=== PATIENT | female | born 1965 | race Two or more races ===

== ENCOUNTER 2019-09-15 11:33 | Emergency (ER) | payer SELFPAY ==
[~2019-09-15] VITALS: Ht 160 cm; Wt 63.5 kg
[2019-09-15 11:40] VITALS: BP 111/60
[2019-09-15 12:34] LABS: Urine Bacteria FEW /hpf (None Seen); Urine Blood Negative /uL (Negative); Urine Mucus FEW (None Seen); Urine Specific Gravity 1.026 (1.001-1.035); Urine WBC 4 /hpf (0 - 5)
[2019-09-15] MEDS ORDERED: KETOROLAC TROMETH 60MG/2ML VIAL IM ONE (13:00)
== END 2019-09-15 13:30 | disposition home or self-care (01) ==
LOC: ER 11:33
DX: G44.209 Tension-type headache, unspecified, not intractable (principal)
CPT/HCPCS: 70450; 81001; 96372; 99284; J1885

== ENCOUNTER 2023-09-14 18:31 | Emergency (ER) | payer BC ==
[~2023-09-14] VITALS: Ht 162.6 cm; Wt 72.7 kg
[2023-09-14 19:47] LABS: Hemoglobin 11.8 g/dL (12.2-16.2); Mean Corpuscular Hemoglobin 21.7 pg (28.0-32.0)
[2023-09-14 19:48] LABS: Chloride 104 mmol/L (98-107); Potassium 4.3 mmol/L (3.5-5.1); Sodium 134 mmol/L (136-145)
[2023-09-14 19:49] LABS: Anion Gap 5 (5-15); Carbon Dioxide 25 mmol/L (20-30); Hematocrit 37.4 % (36.0-46.0); Mean Corpuscular Hgb Conc. 31.5 g/dL (32.0-36.0); Mean Corpuscular Volume 68.9 fL (80.0-100.0); Red Blood Cells 5.43 10^6/uL (4.0-5.20); Red Cell Distribution Width 17.1 % (11.8-14.3); White Blood Cell 4.4 10^3/uL (4.4-10.8)
[2023-09-14 19:50] LABS: Calcium 8.5 mg/dL (8.7-10.4)
[2023-09-14 19:55] LABS: BUN/Creatinine Ratio 13.8 (10.0-20.0); Blood Urea Nitrogen 11 mg/dL (9-23); Glucose 98 mg/dL (74-106); Magnesium 1.8 mg/dL (1.6-2.6)
[2023-09-14 19:56] LABS: Basophils % (manual) 0 (0.0-2.0); Blast Cells 0; Metamyelocytes % 0; Myelocytes % 0; Promyelocytes % 0
[2023-09-14 20:18] LABS: Band Neutrophils % (manual) 2; Eosinophils % (manual) 2 (0-7); Lymphocytes % (manual) 40 (10.0-50.0); Monocytes % (manual) 18 (0-12)
[2023-09-14 20:19] LABS: Hypochromia Moderate; Platelet Estimate Adequate; Reactive Lymphocytes 2
[2023-09-14 20:20] LABS: Large Platelets FEW
[2023-09-14] MEDS: SODIUM CHLORIDE 0.9% 500 ML IV ONE (21:17)
[2023-09-14 23:17] VITALS: BP 105/55; PULSE 81; RESP 18; TEMP 98.3; O2SAT 96
[2023-09-14 23:18] LABS: Urine Bacteria NONE SEEN /hpf (None Seen); Urine Blood Negative /uL (Negative); Urine Clarity Clear (Clear); Urine Hyaline Cast FEW /lpf (0 - 2); Urine Mucus FEW (None Seen); Urine Protein, UAD Negative (Negative); Urine Specific Gravity 1.008 (1.001-1.035); Urine Urobilinogen Normal (Negative); Urine WBC 3 /hpf (0 - 5)
[2023-09-14 23:34] LABS: Urine Color STRAW (Yellow)
== END 2023-09-14 23:20 | disposition home or self-care (01) ==
LOC: EDBD 18:31 → ER 18:31
DX: R55 Syncope and collapse (principal); M19.90 Unspecified osteoarthritis, unspecified site
CPT/HCPCS: 36415; 70450; 71045; 80048; 81001; 82962; 83735; 84484; 85007; 85027; 93005